=== PATIENT | male | born 2000 | race African-American/Black ===

== ENCOUNTER 2021-01-04 18:29 | Emergency (ER) | payer SELFPAY ==
[~2021-01-04] VITALS: Ht 170.2 cm; Wt 98.1 kg
[2021-01-04] MEDS ORDERED: ondansetron/PF 4mg/2ml inj IV ONE (19:05)
[2021-01-04] MEDS ORDERED: normal saline 1000ML IV soln IVB ONE ×2 (19:05→20:35)
[2021-01-04] MEDS ORDERED: metoclopramide 5 mg/ml inj IV ONE (19:05)
[2021-01-04] MEDS ORDERED: diphenhydrAMINE 50 mg/ml inj IV ONE (19:05)
[2021-01-04 19:18] LABS: BASOPHILS % (AUTO) 0.1 % (0-1); EOSINOPHILS % (AUTO) 0.1 % (0-6); HEMATOCRIT 49.2 % (42.0-52.0); LYMPHOCYTES # (AUTO) 0.7 X10'3 (1.1-4.8); LYMPHOCYTES % (AUTO) 4.4 % (21-51); MEAN CORPUSCULAR HEMOGLOBIN 25.2 PG (27.0-31.0); MEAN CORPUSCULAR HGB CONC 32.5 g/dL (33.0-36.5); MEAN CORPUSCULAR VOLUME 77.5 FL (78-98); MONOCYTES # (AUTO) 0.8 X10'3 (0-0.9); MONOCYTES % (AUTO) 5.6 % (2-12); NEUTROPHILS # (AUTO) 13.7 X10'3 (1.8-7.7); NEUTROPHILS % (AUTO) 89.8 % (42-75); PLATELET COUNT 204 X10'3 (140-440); RED BLOOD COUNT 6.35 X10'6 (4.70-6.10); RED CELL DISTRIBUTION WIDTH 15.5 % (11.5-14.5); WHITE BLOOD COUNT 15.2 X10'3 (4.5-11.0)
--- NOTE | 2021-01-04 19:28 | NUR ---
PER PATIENT'S , THEY RECENTLY MOVED HERE FROM [facility]. PATIENT IS A HEAVY MJ SMOKER. CAROLINE STATES THAT HE WOULD GO TO THE THE ER EVERY FEW MONTHS FOR VOMITING
[2021-01-04 20:19] LABS: ALANINE AMINOTRANSFERASE 29 U/L (12-78); ALBUMIN 3.9 G/DL (3.4-5.0); ALBUMIN/GLOBULIN RATIO 1.2 (1.1-1.5); ALKALINE PHOSPHATASE 98 IU/L (46-116); ANION GAP 12 (8-16); ASPARTATE AMINO TRANSFERASE 17 U/L (10-37); BILIRUBIN,TOTAL 0.9 MG/DL (0.1-1.0); BLOOD UREA NITROGEN 14 MG/DL (7-18); BUN/CREATININE RATIO 9.7 (5.4-32.0); CALCIUM 8.9 MG/DL (8.5-10.1); CHLORIDE 109 MMOL/L (99-107); CREATININE 1.44 MG/DL (0.60-1.10); GLUCOSE 107 MG/DL (70-104); LIPASE < 50 U/L (73-393); POTASSIUM 3.5 MMOL/L (3.5-5.1); SODIUM 148 MMOL/L (135-145); TOTAL PROTEIN 7.2 G/DL (6.4-8.2); eGFR 61 ML/MIN
[2021-01-04] MEDS ORDERED: ONDA4TAB6 PO (20:41)
[2021-01-04 20:53] LABS: CLARITY,URINE CLEAR (Clear); COLOR,URINE YELLOW (Yellow); GLUCOSE, URINE NEGATIVE (Neg); KETONES,URINE 15 mg/dl (Neg); LEUKOCYTE ESTERASE ,URINE NEGATIVE (Neg); NITRITES, URINE NEGATIVE (Neg); OCCULT BLOOD,URINE NEGATIVE (Neg); PH,URINE >=9.0 (4.8-8.0); PROTEIN,URINE 30 mg/dl (Neg); UA COLLECTION TYPE CLN CATCH MIDSTREAM; UROBILINOGEN,URINE 0.2 E.U/dL (0.2-1.0)
[2021-01-04 21:03] LABS: BACTERIA,URINE NONE SEEN /HPF (Neg); RBC,URINE 0-2 /HPF (0-2); SQUAMOUS EPITHELIAL CELL,UR NONE SEEN /LPF (FEW); WBC,URINE NONE SEEN /HPF (0-4)
[2021-01-04 21:23] VITALS: BP 111/51
[2021-01-07] MEDS ORDERED: PROM25SU9 RC (09:50)
[2021-01-07] MEDS ORDERED: PANT-47 PO (09:50)
== END 2021-01-04 21:25 | disposition home or self-care (01) ==
LOC: ER 18:31
DX: F12.188 Cannabis abuse with other cannabis-induced disorder (principal); R10.10 Upper abdominal pain, unspecified; F17.200 Nicotine dependence, unspecified, uncomplicated; Z72.89 Other problems related to lifestyle
CPT/HCPCS: 36415; 80053; 81001; 83690; 85025; 96361; 96374; 96375; 99284; J1200; J2405; J2765; J7030

== ENCOUNTER 2021-01-10 11:16 | Emergency (ER) | payer MEDICAID ==
[~2021-01-10] VITALS: Ht 165.1 cm; Wt 34.5 kg
[~2021-01-10 11:16] MED LIST: ONDA4TAB6 PO; PANT-47 PO; PROM25SU9 RC
[2021-01-10 11:19] VITALS: BP 113/72
== END 2021-01-10 12:00 | disposition home or self-care (01) ==
LOC: ER 11:17
DX: Z02.89 Encounter for other administrative examinations (principal); R11.2 Nausea with vomiting, unspecified; E86.0 Dehydration; F12.90 Cannabis use, unspecified, uncomplicated; Z79.899 Other long term (current) drug therapy
CPT/HCPCS: 99281

== ENCOUNTER 2021-01-10 20:15 | Emergency (ER) | payer MEDICAID | END 2021-01-10 22:04 | disposition left against medical advice (07) | LOC: ER 20:16 | DX: Z53.21 Procedure and treatment not carried out due to patient leaving prior to being seen by health care provider (principal) ==

== ENCOUNTER 2021-01-12 02:05 | Emergency (ER) | payer MEDICAID ==
[~2021-01-12] VITALS: Ht 175.3 cm; Wt 75.0 kg
[2021-01-12] MEDS ORDERED: haloperidol lactate 5mg/ml inj IM ONE (02:25)
[2021-01-12] MEDS ORDERED: diphenhydrAMINE 50 mg/ml inj IV ONE (02:25)
[2021-01-12] MEDS ORDERED: ondansetron/PF 4mg/2ml inj IV ONE (02:25)
[2021-01-12] MEDS ORDERED: normal saline 1000ML IV soln IVB ONE (02:25)
[2021-01-12 04:15] VITALS: BP 111/62
== END 2021-01-12 04:16 | disposition home or self-care (01) ==
LOC: ER 02:05
DX: R11.2 Nausea with vomiting, unspecified (principal); R10.10 Upper abdominal pain, unspecified; F12.90 Cannabis use, unspecified, uncomplicated; Z79.899 Other long term (current) drug therapy
CPT/HCPCS: 96361; 96372; 96374; 96375; 99284; J1200; J1630; J2405; J7030

== ENCOUNTER 2021-01-15 05:11 | Emergency (ER) | payer MEDICAID ==
[~2021-01-15] VITALS: Ht 167.6 cm; Wt 60.0 kg
[~2021-01-15 05:11] MED LIST changes: -MELA10CA2 PO; -NO HOME MEDS; -PROC25SU31 RC; -TRAZ-256 PO
[2021-01-15] MEDS ORDERED: haloperidol lactate 5mg/ml inj IM ONE (05:15)
[2021-01-15] MEDS ORDERED: normal saline 1000ML IV soln IVB ONE (05:15)
[2021-01-15] MEDS ORDERED: pantoprazole 40 MG vial IV ONE (05:20)
[2021-01-15] MEDS ORDERED: famotidine/PF 10 mg/ml inj IV ONE (05:20)
[2021-01-15] MEDS ORDERED: PROC25SU31 RC (05:34)
[2021-01-15 05:49] LABS: BASOPHILS # (AUTO) 0.1 X10'3 (0-0.2); BASOPHILS % (AUTO) 0.6 % (0-1); EOSINOPHILS # (AUTO) 0.1 X10'3 (0-0.9); EOSINOPHILS % (AUTO) 1.2 % (0-6); HEMATOCRIT 47.4 % (42.0-52.0); HEMOGLOBIN 15.6 g/dl (14.0-17.9); LYMPHOCYTES # (AUTO) 1.9 X10'3 (1.1-4.8); LYMPHOCYTES % (AUTO) 21.1 % (21-51); MEAN CORPUSCULAR HEMOGLOBIN 25.5 PG (27.0-31.0); MEAN CORPUSCULAR HGB CONC 32.8 g/dL (33.0-36.5); MEAN CORPUSCULAR VOLUME 77.8 FL (78-98); MEAN PLATELET VOLUME 9.5 FL (7.4-10.4); MONOCYTES # (AUTO) 0.7 X10'3 (0-0.9); MONOCYTES % (AUTO) 8.1 % (2-12); NEUTROPHILS # (AUTO) 6.2 X10'3 (1.8-7.7); PLATELET COUNT 193 X10'3 (140-440); RED CELL DISTRIBUTION WIDTH 15.6 % (11.5-14.5)
[2021-01-15 06:00] LABS: ALANINE AMINOTRANSFERASE 20 U/L (12-78); ALBUMIN 3.9 G/DL (3.4-5.0); ALKALINE PHOSPHATASE 91 IU/L (46-116); ANION GAP 11 (8-16); ASPARTATE AMINO TRANSFERASE 13 U/L (10-37); BILIRUBIN,TOTAL 0.8 MG/DL (0.1-1.0); BLOOD UREA NITROGEN 9 MG/DL (7-18); BUN/CREATININE RATIO 7.5 (5.4-32.0); CALCIUM 9.4 MG/DL (8.5-10.1); CHLORIDE 103 MMOL/L (99-107); GLUCOSE 104 MG/DL (70-104); POTASSIUM 3.7 MMOL/L (3.5-5.1); SODIUM 141 MMOL/L (135-145); TOTAL CARBON DIOXIDE 27.5 MMOL/L (24-32); TOTAL PROTEIN 7.7 G/DL (6.4-8.2); eGFR > 90 ML/MIN
[2021-01-15 06:01] LABS: ETHANOL < 0.010 GM/DL (0.0-0.010)
[2021-01-15 06:21] VITALS: BP 110/71
[2021-01-15] MEDS ORDERED: MELA10CA2 PO (19:34)
[2021-01-16] MEDS ORDERED: NO HOME MEDS (07:19)
[2021-01-16] MEDS ORDERED: PROC25SU31 RC (08:56)
== END 2021-01-15 06:27 | disposition home or self-care (01) ==
LOC: ER 05:12
DX: F12.188 Cannabis abuse with other cannabis-induced disorder (principal); K29.00 Acute gastritis without bleeding; R10.13 Epigastric pain; Z79.899 Other long term (current) drug therapy
CPT/HCPCS: 36415; 80053; 80320; 85025; 96372; 96374; 96375; 99284; C9113; J1630; J3490; J7030

== ENCOUNTER 2021-01-15 23:15 | Emergency (ER) | payer MEDICAID ==
[~2021-01-15] VITALS: Ht 170.2 cm; Wt 54.5 kg
[~2021-01-15 23:15] MED LIST changes: +MELA10CA2 PO; +PROC25SU31 RC
--- NOTE | 2021-01-15 23:48 | NUR ---
Received pt straight back from triage with complaints of feeling like he's going crazy and that "I've never felt like this before" Like I'm going to kill myself. Girlfriend is at bedside attempting to keep pt calm. Pt is demanding to see a doctor and is somewhat uncooperative. "You gotta give me something!"
[2021-01-16] MEDS ORDERED: LORazepam 1 MG tablet PO ONE (00:05)
[2021-01-16 00:38] LABS: BASOPHILS % (AUTO) 0.4 % (0-1); EOSINOPHILS # (AUTO) 0.1 X10'3 (0-0.9); HEMATOCRIT 43.8 % (42.0-52.0); HEMOGLOBIN 14.1 g/dl (14.0-17.9); LYMPHOCYTES # (AUTO) 2.1 X10'3 (1.1-4.8); LYMPHOCYTES % (AUTO) 19.4 % (21-51); MEAN CORPUSCULAR HGB CONC 32.1 g/dL (33.0-36.5); MEAN CORPUSCULAR VOLUME 77.9 FL (78-98); MEAN PLATELET VOLUME 9.3 FL (7.4-10.4); MONOCYTES % (AUTO) 8.8 % (2-12); NEUTROPHILS # (AUTO) 7.7 X10'3 (1.8-7.7); NEUTROPHILS % (AUTO) 70.4 % (42-75); PLATELET COUNT 204 X10'3 (140-440); RED BLOOD COUNT 5.62 X10'6 (4.70-6.10); RED CELL DISTRIBUTION WIDTH 15.5 % (11.5-14.5); WHITE BLOOD COUNT 10.9 X10'3 (4.5-11.0)
[2021-01-16 00:52] LABS: ALANINE AMINOTRANSFERASE 28 U/L (12-78); ALBUMIN 3.8 G/DL (3.4-5.0); ALBUMIN/GLOBULIN RATIO 1.1 (1.1-1.5); ALKALINE PHOSPHATASE 88 IU/L (46-116); ANION GAP 12 (8-16); ASPARTATE AMINO TRANSFERASE 33 U/L (10-37); BILIRUBIN,TOTAL 0.4 MG/DL (0.1-1.0); BLOOD UREA NITROGEN 11 MG/DL (7-18); BUN/CREATININE RATIO 10.2 (5.4-32.0); CALCIUM 8.9 MG/DL (8.5-10.1); CHLORIDE 104 MMOL/L (99-107); CREATININE 1.08 MG/DL (0.60-1.10); ETHANOL < 0.010 GM/DL (0.0-0.010); GLUCOSE 164 MG/DL (70-104); POTASSIUM 3.9 MMOL/L (3.5-5.1); SODIUM 140 MMOL/L (135-145); TOTAL CARBON DIOXIDE 24.1 MMOL/L (24-32); TOTAL PROTEIN 7.2 G/DL (6.4-8.2); eGFR > 90 ML/MIN
--- NOTE | 2021-01-16 02:10 | NUR ---
Patient is sleeping quietly in a prone position. Once this patient awakens a urine sample will be obtained.
--- NOTE | 2021-01-16 03:51 | NUR ---
PACKET SENT TO [facility]
--- NOTE | 2021-01-16 04:08 | NUR ---
Patient is sleeping quietly on his right side. In direct view from the nurses station. The patient has slept quietly since this selling underwriter assumed care.
--- NOTE | 2021-01-16 05:14 | NUR ---
Patient sleeps quietly on his left side. No distress. In view from nurses station.
--- NOTE | 2021-01-16 05:54 | NUR ---
Patient awoke for vital signs. [facility] urine sent for labs. Patient returned immediately to sleep.
--- NOTE | 2021-01-16 06:41 | NUR ---
Received pt. sleeping in bed at the beginning of the shift, rr even and unlabored.
[2021-01-16 06:44] LABS: URINE AMPHETAMINE SCREEN NEGATIVE (Neg); URINE BARBITUATE SCREEN NEGATIVE (Neg); URINE BENZODIAZEPINES SCREEN NEGATIVE (Neg); URINE CANNABINOID SCREEN POSITIVE (Neg); URINE COCAINE SCREEN NEGATIVE (Neg); URINE METHADONE SCREEN NEGATIVE (Neg); URINE OPIATE SCREEN NEGATIVE (Neg); URINE PHENCYCLIDINE SCREEN NEGATIVE (Neg)
[2021-01-16] MEDS ORDERED: NO HOME MEDS (07:19)
[2021-01-16] MEDS ORDERED: LORazepam 1 MG tablet PO PRN (07:25)
--- NOTE | 2021-01-16 07:34 | NUR ---
Pt. toxicology screen sent to [facility] per request
--- NOTE | 2021-01-16 07:37 | NUR ---
1:1 completed at bedside, pt. presents as restless and cannot sit still. He continues to report S/I without a plan r/t feeling this way. Pt. states, "I've been feeling this way for a week,." Pt. denies any A/V/DWYER and no delusional statements made. Pt. reports he has never felt suicidal before, and denies taking any home medications. Pt. requested medication for anxiety, and continued to appear very restless. Obtained order for PRN Ativan 1mg Q6 hr from Dr. Sepulveda. Will continue to monitor. Addendum: 01/16/21 at 0832 by ANDREW Pt. scores as a low risk on the [place] Suicide Risk Assessment.
--- NOTE | 2021-01-16 08:27 | NUR ---
Medication was effective and pt. is now resting comfortably at this time. His eyes are closed and rr even and unlabored. Pt's girlfriend is in to visit at this time and is sitting quietly at pt's bedside.
[2021-01-16] MEDS ORDERED: PROC25SU31 RC (08:56)
--- NOTE | 2021-01-16 09:17 | NUR ---
Pt. discharged, accompanied to car by staff and girlfriend who will be driving him home. Pt. belongings were returned to him and discharge instructions and medication was reviewed with him by this race and sports book writer. Pt. reported understanding. Pt. was provided with MH resources, and will F/U with his primary medical doctor. He is able to contract for safety.
[2021-01-16 09:21] VITALS: BP 138/81
== END 2021-01-16 09:24 | disposition home or self-care (01) ==
LOC: ER 23:15
DX: R45.851 Suicidal ideations (principal); F12.929 Cannabis use, unspecified with intoxication, unspecified; R11.2 Nausea with vomiting, unspecified; R10.84 Generalized abdominal pain
CPT/HCPCS: 36415; 80053; 80305; 80320; 85025; 99285

== ENCOUNTER → 2021-01-15 | Emergency (ER) | payer MEDICAID ==
[~2021-01-15] VITALS: Ht 170.2 cm; Wt 53.0 kg
[~2021-01-15] MED LIST changes: +MELA10CA2 PO; +NO HOME MEDS; +PROC25SU31 RC; +TRAZ-256 PO
[2021-01-15 19:23] VITALS: BP 114/64
--- NOTE | 2021-01-15 19:58 | NUR ---
Patient continues coming up to the window states "when will the doctor be here?" insisting he is having more important emergencies than anyone else. Patient and significant other decided to walk out.
== END | disposition left against medical advice (07) ==
LOC: ER 19:21
DX: G47.9 Sleep disorder, unspecified (principal); Z53.21 Procedure and treatment not carried out due to patient leaving prior to being seen by health care provider

== ENCOUNTER 2021-01-17 03:13 | Emergency (ER) | payer MEDICAID ==
[~2021-01-17] VITALS: Ht 170.2 cm; Wt 54.5 kg
[~2021-01-17 03:13] MED LIST changes: -MELA10CA2 PO; +NO HOME MEDS; -ONDA4TAB6 PO; -PANT-47 PO; -PROM25SU9 RC
[2021-01-17 03:22] VITALS: BP 120/81
[2021-01-17] MEDS ORDERED: quetiapine 100mg tablet PO ONE (04:49)
[2021-01-18] MEDS ORDERED: TRAZ-256 PO (01:53)
== END 2021-01-17 05:17 | disposition home or self-care (01) ==
LOC: ER 03:14
DX: G47.00 Insomnia, unspecified (principal); F12.90 Cannabis use, unspecified, uncomplicated; Z79.899 Other long term (current) drug therapy
CPT/HCPCS: 99283

== ENCOUNTER 2021-01-18 01:14 | Emergency (ER) | payer MEDICAID ==
[~2021-01-18] VITALS: Ht 167.6 cm; Wt 54.5 kg
[2021-01-18 01:23] VITALS: BP 117/73
[2021-01-18] MEDS ORDERED: TRAZ-256 PO (01:53)
== END 2021-01-18 02:12 | disposition home or self-care (01) ==
LOC: ER 01:14
DX: G47.00 Insomnia, unspecified (principal); F12.90 Cannabis use, unspecified, uncomplicated; Z79.899 Other long term (current) drug therapy
CPT/HCPCS: 99281; 99283